=== PATIENT | male | born 1945 | race Caucasian/White ===

== ENCOUNTER 2020-08-14 11:47 | Day surgery (SDC) | payer MEDICARE ==
[~2020-08-14] VITALS: Ht 177.8 cm; Wt 75.8 kg
[2020-08-14 12:46] LABS: HEMATOCRIT 47.1 % (42.0-52.0); HEMOGLOBIN 15.9 g/dl (13.5-18.0); MEAN CELL VOLUME 96 fl (80.0-100.0); MEAN CORPUSCULAR HEMOGLOBIN 32 pg (27.0-31.0); MEAN CORPUSCULAR HGB CONC 34 g/dl (33.0-37.0); MEAN PLATELET VOLUME 10.1 fl (7.4-10.4); PLATELET COUNT 178 K/mm3 (130-400); RED BLOOD COUNT 4.92 M/mm3 (4.20-5.60); REDCELL DISTRIBUTION WIDTH-CV 12.6 % (11.5-14.5)
[2020-08-14] MEDS ORDERED: PLAVIX 75MG TAB75 MG PO (12:47)
[2020-08-14] MEDS ORDERED: ASPIRIN E.C. 8181 MG PO (12:48)
[2020-08-14] MEDS ORDERED: EPA FISH OIL1 SGL PO (12:49)
[2020-08-14] MEDS ORDERED: LIPITOR 80MG80 MG PO (12:49)
[2020-08-14 12:50] VITALS: BP 118/69; PULSE 76; TEMP 98.1
[2020-08-14 12:55] LABS: PROTHROMBIN TIME 10.6 SECONDS (9.7-12.8)
[2020-08-14 12:57] LABS: CALCIUM 9.3 mg/dL (8.4-10.2); CREATININE, serum 1.14 (0.66-1.25); POTASSIUM 4.6 mmol/L (3.4-5.0)
[2020-08-14 12:58] LABS: PARTIAL THROMBOPLASTIN TIME 29.7 SECONDS (26.0-37.0)
[2020-08-14 15:56] VITALS: BP 136/65; PULSE 60
--- NOTE | 2020-08-14 15:58 | NUR ---
SEE MERGE FOR ALL MEDICATION ADMINISTRATION TIMES, INTRA AND POST SEDATION ASSESSMENT
[2020-08-14 16:45] VITALS: BP 134/81; PULSE 61
[2020-08-14 17:00] VITALS: BP 131/78; PULSE 64
[2020-08-14] MEDS ORDERED: IMDUR 30MG30 MG/TAB PO (17:11)
[2020-08-14 17:15] VITALS: BP 131/963; PULSE 50
--- NOTE | 2020-08-14 22:22 | NUR ---
Pt returned to express unit at 1645 after heart cath. 1000 cc NS infusing w/o per order from DR. Blanco. left radial site looks good, TR band in place, cms intact distal. tele implemented. dinner was ordered. pt did not receive any sedation, and pt very antsy. Pt basically was unable to lay down or sit during his recovery. He did stand for the majority of his stay. RT applied holter monitor per orders. lasix was administered per orders, and pt has several unmeasured voids. pt was given tylenol for a headache. TR band was deflated starting at 1845, after 5cc was removed there was bleeding at site, and 3cc air reinstilled to achieve hemostasis. Began deflation again 30 min later and band was deflated. small lump at puncture site when tr band removed, manual pressure held for 5 minutes, with resolution of the small hematoma. site dressed wtih bandaid, folded 2x2 and coban, cms intact distal. I reviewed dc/rx and fu instructions with pt, and daughter. Pt did state "you know i'm not listening to a word you say", however we did go through the instructions, and and daughter were receptive to the information. IV was dc'd with cath intact, dressing was applied. I walked pt and family to their vehicle. vital signs on monitor were lost, however pt's vitals had remained stable throughout his visit. PT was amb with brisk gait, and was pwd upon his departure.
== END 2020-08-14 22:34 | disposition home or self-care (01) ==
LOC: COL.CAR 11:47
PROVIDERS: Internal Medicine Interventional Cardiology
DX: I25.10 Atherosclerotic heart disease of native coronary artery without angina pectoris (principal); I73.9 Peripheral vascular disease, unspecified; I71.4 Abdominal aortic aneurysm, without rupture; J44.9 Chronic obstructive pulmonary disease, unspecified; F17.200 Nicotine dependence, unspecified, uncomplicated; Z71.89 Other specified counseling; Z79.82 Long term (current) use of aspirin; Z79.899 Other long term (current) drug therapy; Z79.02 Long term (current) use of antithrombotics/antiplatelets; Z95.1 Presence of aortocoronary bypass graft
CPT/HCPCS: C1769; C1894; J1644; J1940; Q9967